=== PATIENT | male | born 1955 | race Caucasian/White ===

== ENCOUNTER → 2016-10-03 | Outpatient (CLI) | payer OTHER ==
--- NOTE | 2016-10-03 14:55 | MRI ---
HISTORY: Low back pain, paresthesias Study: MRI lumbar spine without contrast Comparison: None Technique: Multiplanar multi-sequence MRI of the lumbar spine was obtained. Sagittal T1, sagittal T 2, and stir weighted images, axial T1, and axial T2 images were obtained. Findings: The lumbar spine demonstrates normal alignment with the expected signal characteristics of the bone marrow. The conus of the cord terminates normally. T12 -- L1: No evidence for compressive disc disease. The neural foramina are patent. The joints are normal. L1 -- L2: No evidence for compressive disc disease. The neural foramina are patent. The joints are n ormal. L2 -- L3: No evidence for compressive disc disease. The neural foramina are patent. Mild facet arthr opathy is present bilaterally. L3 -- L4: There is a small focal leftward disc protrusion which contributes to mild lateral recess a nd foraminal narrowing. The right neural foramen is patent. The joints are normal. L4 -- L5: There is concentric disc bulging which is associated with a small annular rent on the left . It contributes along with pedicular shortening and bilateral facet arthropathy to lateral recess a nd foraminal narrowing bilaterally. L5 -- S1: There is a small central disc protrusion which causes minimal thecal sac effacement but no nerve root displacement. There is some concentric bulging that contributes along with bilateral fac et arthropathy to lateral recess narrowing of a mild degree bilaterally. IMPRESSION: As above Reported By:
== END ==
LOC: RAD 12:56
PROVIDERS: ATTEND Nurse Practitioner Family
DX: M47.16 Other spondylosis with myelopathy, lumbar region (principal)
CPT/HCPCS: 72148

== ENCOUNTER → 2016-12-30 | Outpatient (CLI) | payer OTHER ==
[2016-12-30 10:54] LABS: BASOPHILS # (AUTO) 0.1 X10^3/uL (0.0-0.1); EOSINOPHILS # (AUTO) 0.1 x10^3/uL (0.0-0.2); EOSINOPHILS % (AUTO) 0.9 % (0.9-2.9); HEMATOCRIT 42.4 % (42.0-54.0); HEMOGLOBIN 14.9 g/dL (13.5-18.0); LYMPHOCYTES # (AUTO) 1.8 X10^3/uL (1.3-2.9); LYMPHOCYTES % (AUTO) 27.6 % (21.0-51.0); MEAN CORPUSCULAR HEMOGLOBIN 32.5 pg (27.0-34.0); MEAN CORPUSCULAR HGB CONC 35.1 g/dL (33.0-35.0); MEAN CORPUSCULAR VOLUME 92.5 fL (80.0-100.0); MONOCYTES # (AUTO) 0.4 x10^3/uL (0.3-0.8); MONOCYTES % (AUTO) 5.5 % (0.0-13.0); NEUTROPHILS # (AUTO) 4.3 x10^3/uL (2.2-4.8); PLATELET COUNT 206 X10^3/uL (150.0-450.0); RED BLOOD COUNT 4.59 X10^6/uL (4.7-6.0); RED CELL DISTRIBUTION WIDTH 13.2 % (11.6-16.5); WHITE BLOOD COUNT 6.6 X10^3/uL (3.6-10.0)
[2016-12-30 11:04] LABS: ALANINE AMINOTRANSFERASE 32 Units/L (12-78); ALBUMIN 3.7 g/dL (3.4-5.0); ALKALINE PHOSPHATASE 90 Units/L (46-116); ASPARTATE AMINO TRANSFERASE 22 Units/L (15-37); BLOOD UREA NITROGEN 15 mg/dL (7-18); CALCIUM 8.5 mg/dL (8.5-10.1); CHLORIDE 103 mmol/L (98-107); CHOL/HDL RATIO 6.9 (0.0-5.0); CHOLESTEROL 277 mg/dL (0-200); CREATININE 0.99 mg/dL (0.70-1.30); GLUCOSE 96 mg/dL (65-99); HDL CHOLESTEROL 40 mg/dL (40-60); SODIUM 139 mmol/L (136-145); TOTAL PROTEIN 7.5 g/dL (6.4-8.2); TRIGLYCERIDES 256 mg/dL (0-150); eGFR BLACK RACES > 60 (>60); eGFR NON BLACK RACES > 60 (>60)
[2016-12-30 11:27] LABS: TOTAL PSA 0.67 ng/mL (0.13-4.0)
== END ==
LOC: LAB 10:28
PROVIDERS: ATTEND Nurse Practitioner Family
DX: Z12.5 Encounter for screening for malignant neoplasm of prostate (principal); E78.00 Pure hypercholesterolemia, unspecified; I10 Essential (primary) hypertension; R53.83 Other fatigue
CPT/HCPCS: 36415; 80053; 80061; 84153; 84270; 84402; 84403; 85025

== ENCOUNTER → 2017-07-24 | Emergency (ER) | payer OTHER ==
[2017-07-24 07:32] LABS: BASOPHILS # (AUTO) 0.1 X10^3/uL (0.0-0.1); BASOPHILS % (AUTO) 0.8 % (0.2-1.0); EOSINOPHILS # (AUTO) 0.1 x10^3/uL (0.0-0.2); EOSINOPHILS % (AUTO) 1.4 % (0.9-2.9); HEMATOCRIT 44.9 % (42.0-54.0); HEMOGLOBIN 15.9 g/dL (13.5-18.0); LYMPHOCYTES # (AUTO) 2.3 X10^3/uL (1.3-2.9); LYMPHOCYTES % (AUTO) 26.6 % (21.0-51.0); MEAN CORPUSCULAR HEMOGLOBIN 32.3 pg (27.0-34.0); MEAN CORPUSCULAR HGB CONC 35.3 g/dL (33.0-35.0); MEAN CORPUSCULAR VOLUME 91.7 fL (80.0-100.0); MEAN PLATELET VOLUME 8.8 fL (7.4-11.0); MONOCYTES # (AUTO) 0.5 x10^3/uL (0.3-0.8); MONOCYTES % (AUTO) 6.2 % (0.0-13.0); NEUTROPHILS # (AUTO) 5.7 x10^3/uL (2.2-4.8); PLATELET COUNT 209 X10^3/uL (150.0-450.0); RED CELL DISTRIBUTION WIDTH 14.1 % (11.6-16.5); WHITE BLOOD COUNT 8.7 X10^3/uL (3.6-10.0)
[2017-07-24 07:50] LABS: ALANINE AMINOTRANSFERASE 23 Units/L (12-78); ALBUMIN 3.5 g/dL (3.4-5.0); ALKALINE PHOSPHATASE 84 Units/L (46-116); ASPARTATE AMINO TRANSFERASE 21 Units/L (15-37); BLOOD UREA NITROGEN 15 mg/dL (7-18); CHLORIDE 102 mmol/L (98-107); CHOL/HDL RATIO 6.5 (0.0-5.0); CHOLESTEROL 280 mg/dL (0-200); COR NA(FOR HYPERGLY) 137 mmol/L (136-145); CREATININE 0.95 mg/dL (0.70-1.30); HDL CHOLESTEROL 43 mg/dL (40-60); SODIUM 137 mmol/L (136-145); TOTAL PROTEIN 7.5 g/dL (6.4-8.2); TRIGLYCERIDES 245 mg/dL (0-150); eGFR BLACK RACES > 60 (>60); eGFR NON BLACK RACES > 60 (>60)
== END ==
LOC: LAB 07:14
DX: E78.2 Mixed hyperlipidemia (principal); I10 Essential (primary) hypertension
CPT/HCPCS: 36415; 80053; 80061; 85025

== ENCOUNTER 2020-06-26 08:05 | Observation (INO) ==
[2020-06-26] MEDS ORDERED: LR 1000 ML IV 1,000 ML IV ONE (08:14)
[2020-06-26] MEDS ORDERED: ANCEF 1 GRAM IV PREMIX* 1 G/50 ML BAG IV ONE (08:14)
[2020-06-26] MEDS ORDERED: BACTROBAN TOPICAL OINT ONE (09:32)
[2020-06-26] MEDS ORDERED: FENTANYL INJ 250 mcg ONE (09:32)
[2020-06-26] MEDS ORDERED: OFIRMEV IV 1000 MG VIAL 1,000 MG/100 ML VIAL IV ONE (09:42)
[2020-06-26] MEDS ORDERED: QUELICIN (OR ANECTINE) ONE (09:45)
[2020-06-26] MEDS ORDERED: NORCURON INJ 10 MG VIAL ONE (09:45)
[2020-06-26] MEDS ORDERED: NEOSTIGMINE INJ ONE (09:45)
[2020-06-26] MEDS ORDERED: DIPRIVAN VIAL ONE (09:45)
[2020-06-26] MEDS ORDERED: SUPRANE ONE ×2 (09:45→10:48)
[2020-06-26] MEDS ORDERED: VERSED ONE (09:45)
[2020-06-26] MEDS ORDERED: ROBINUL ONE (09:45)
[2020-06-26] MEDS ORDERED: POLYMYXIN B SULFATE ONE (11:17)
[2020-06-26] MEDS ORDERED: PHENERGAN INJ 25 MG IM PRN (11:40)
[2020-06-26] MEDS ORDERED: BENADRYL INJ 50 MG VIAL IVP PRN (11:40)
[2020-06-26] MEDS ORDERED: ZOFRAN INJ 4 MG VIAL IVP PRN (11:40)
[2020-06-26] MEDS ORDERED: REGLAN INJ 10 MG VIAL IVP PRN (11:40)
[2020-06-26] MEDS ORDERED: APRESOLINE INJ 20 MG VIAL ONE (11:53)
[2020-06-26] MEDS ORDERED: DILAUDID INJ ONE ×3 (12:01→12:49)
[2020-06-26] MEDS ORDERED: DILAUDID INJ IVP PRN (12:17)
[2020-06-26] MEDS: D5 1/2 NS 1000 ML 1,000 ML IV SCH ×2 (12:46→21:41)
[2020-06-26 14:45] VITALS: BMI 25.1
[2020-06-26] MEDS ORDERED: NS 50 ML IV + SPIKE MINIBAG* 50 ML IV ONE (15:07)
[2020-06-26] MEDS ORDERED: ANCEF VIAL 1 GRAM ONE (15:07)
[2020-06-26] MEDS ORDERED: NS IRRIGATION* 3,000 ML ONE (15:11)
[2020-06-26] MEDS ORDERED: NS IRRIGATION* 1,000 ML ONE (15:11)
[2020-06-26] MEDS: ANCEF VIAL 1 GRAM IVP SCH ×2 (15:16→21:40)
[2020-06-26] MEDS: PERCOCET TAB 5/325 MG PO PRN (16:08)
[2020-06-26] MEDS: DILAUDID INJ IVP PRN (21:41)
[2020-06-27] MEDS: PERCOCET TAB 5/325 MG PO PRN ×3 (00:03→14:15)
[2020-06-27] MEDS: DILAUDID INJ IVP PRN ×3 (04:18→11:24)
[2020-06-27] MEDS: ANCEF VIAL 1 GRAM IVP SCH (05:54)
[2020-06-27] MEDS: D5 1/2 NS 1000 ML 1,000 ML IV SCH ×2 (05:54→08:38)
[2020-06-27] MEDS ORDERED: D5 1/2 NS 1000 ML 1,000 ML IV ONE (08:14)
[2020-06-27] MEDS ORDERED: LOVENOX INJ 40 MG SYR SC SCH (09:00)
[2020-06-27 09:04] LABS: BASOPHILS # (AUTO) 0.1 X10^3/uL (0.0-0.1); BASOPHILS % (AUTO) 0.9 % (0.2-1.0); EOSINOPHILS % (AUTO) 0.3 % (0.9-2.9); HEMATOCRIT 36.7 % (42.0-54.0); HEMOGLOBIN 12.2 g/dL (13.5-18.0); LYMPHOCYTES # (AUTO) 1.9 X10^3/uL (1.3-2.9); MEAN CORPUSCULAR HEMOGLOBIN 28.3 pg (27.0-34.0); MEAN CORPUSCULAR HGB CONC 33.3 g/dL (33.0-35.0); MEAN CORPUSCULAR VOLUME 84.9 fL (80.0-100.0); MEAN PLATELET VOLUME 8.3 fL (7.4-11.0); MONOCYTES # (AUTO) 0.8 x10^3/uL (0.3-0.8); NEUTROPHILS # (AUTO) 8.2 x10^3/uL (2.2-4.8); NEUTROPHILS % (AUTO) 74.8 % (42.0-75.0); PLATELET COUNT 274 X10^3/uL (150.0-450.0); RED BLOOD COUNT 4.32 X10^6/uL (4.7-6.0); RED CELL DISTRIBUTION WIDTH 17.7 % (11.6-16.5); WHITE BLOOD COUNT 10.9 X10^3/uL (3.6-10.0)
[2020-06-27 09:16] LABS: ALANINE AMINOTRANSFERASE 23 Units/L (12-78); ALBUMIN 3.1 g/dL (3.4-5.0); ALKALINE PHOSPHATASE 105 Units/L (46-116); ASPARTATE AMINO TRANSFERASE 40 Units/L (15-37); BLOOD UREA NITROGEN 11 mg/dL (7-18); CALCIUM 9.1 mg/dL (8.5-10.1); CARBON DIOXIDE 27.3 mmol/L (21-32); CHLORIDE 98 mmol/L (98-107); COR CA(FOR HYPOALB) 9.8 mg/dL (8.5-10.1); COR NA(FOR HYPERGLY) 134 mmol/L (136-145); SODIUM 134 mmol/L (136-145); eGFR NON BLACK RACES > 60 (>60)
[2020-06-27 11:49] VITALS: BP 163/73
== END 2020-06-27 15:10 | disposition home or self-care (01) ==
LOC: SURG1 08:05 → OBS 08:05
PROVIDERS: ADMIT Surgery; ATTEND Surgery
DX: K82.8 Other specified diseases of gallbladder; K80.12 Calculus of gallbladder with acute and chronic cholecystitis without obstruction

== ENCOUNTER 2025-03-24 11:36 | Observation (INO) ==
--- NOTE | 2025-03-24 11:58 | EKG ---
Test Reason : Chest Pain Blood Pressure : */* mmHG Vent. Rate : 135 BPM Atrial Rate : * BPM P-R Int : * ms QRS Dur : 104 ms QT Int : 288 ms P-R-T Axes : * 16 192 degrees QTc Int : 432 ms Atrial fibrillation with rapid ventricular response with premature ventricular or aberrantly conducted complexes Minimal voltage criteria for LVH, may be normal variant ( Adam product ) Abnormal ECG No previous ECGs available Confirmed by Manuel Chambers MD ([id number]) on 03/24/2025 12:34:57 PM Referred By: Confirmed By: Manuel Chambers MD
[2025-03-24 12:28] LABS: MEAN PLATELET VOLUME 9.6 fL (7.4-11.0); RED CELL DISTRIBUTION WIDTH 17.6 % (11.6-16.5)
[2025-03-24] MEDS ORDERED: ZOFRAN INJ 4 MG VIAL ONE (12:37)
[2025-03-24] MEDS: ZOFRAN INJ 4 MG VIAL IVP ONE (12:38)
[2025-03-24 12:42] LABS: COR CA(FOR HYPOALB) 9.1 mg/dL (8.5-10.1); COR NA(FOR HYPERGLY) 137 mmol/L (136-145); CREATININE 1.21 mg/dL (0.70-1.30); eGFR NON BLACK RACES > 60 (>60)
--- NOTE | 2025-03-24 13:18 | DR.CP ---
HPI Time Seen Time Seen by Provider: 03/24/25 13:18 PCP Primary Care Physician: marcy Complaint Chief Complaint Doctor Comments: Patient with extensive cardiac history with many stents presents with complaint of left side chest pain/pressure under his breast that has been going on for almost a week. Patient follows with cardiology. Patient has had bilateral lower extremity amputations [id number] due to peripheral vascular disease. Denies diabetes. Patient states his heart rate was elevated today but he does have a history of atrial fibrillation and states that he feels like his heart rate has been a little higher lately. Patient states he has no shortness of breath but describes a feeling of difficulty taking a breath when he is palpitations worsen however it is not happening at this time. Chief Complaint:: Patient states over the weekend he started having pressure on the left side chest right under his left breast. He states it feels as if he cant take a deep breath in or out. Today he states he took his bp and hr and it was elevated. He states the pressure continue to increase. Self Treatment fo Chief Complaint: hydrocodone a hour ago for his lower back pain. COVID-19 Coronavirus risk:travel/contact w/high risk person: No Has patient experienced Coronavirus symptoms: No Source History Provided: Patient Mode of Arrival Mode of Arrival: Wheelchair Timing Onset of Chief Complaint: 03/22/25 Location Chest Pain Radiation Location: Abdomen Associated Signs and Symptoms Associated Signs and Symptoms: Shortness of Breath, Palpitations and Abdominal Pain PMH PMH Past Medical History: Yes Past Medical History: Coronary Artery Disease, CVA, Dyslipidemia, Hypertension and ND Past Medical History Comment: a-fib Past Surgical History: Yes Surgical History: Abdominal Surgery, Angioplasty/Stents and CABG/Valve Surgery Past Surgical History Comment: roland above the knee amp Family History History of Family Medical Conditions: Yes Family Medical History: Coronary Artery Disease and Hypertension Social History Does patient currently use any type of tobacco product: No Have you used tobacco products in the last 12 months: No Type of Tobacco Use: None Does any household member use tobacco: No Alcohol Use: None Do you use any recreational Drugs:: No Lives With: Alone Lives Where: Home Travel Risk Coronavirus risk:travel/contact w/high risk person: No Has patient experienced Coronavirus symptoms: No Infectious screening In the last 2 months have you had wt loss of >10#?: NO Have you had fever, night sweats or hemotysis?: No Have you traveled outside the country in the last 6 months?: No Isolation: Standard ROS Review of Systems Constitutional: No Symptoms Reported Eyes: No Symptoms Reported ENTM: No Symptoms Reported Respiratoy: No Symptoms Reported Cardiovascular: See HPI Gastrointestinal/Abdominal: No Symptoms Reported Genitourinary: No Symptoms Reported Neurological: No Symptoms Reported Musculoskeletal: No Symptoms Reported Integumentary: No Symptoms Reported Hematologic/Lymphatic: No Symptoms Reported Endocrine: No Symptoms Reported Psychiatric: No Symptoms Reported All Other Systems: Reviewed and Negative PE Vitals Vitals: Vital Signs Temperature 97.9 F Pulse Rate 94 Pulse Rate 87 Pulse Rate 97 Pulse Rate 99 Pulse Rate 98 Pulse Rate 98 Pulse Rate 107 Pulse Rate 128 Pulse Rate 119 Pulse Rate 125 Pulse Rate 126 Pulse Rate 135 Pulse Rate 128 Pulse Rate 126 Pulse Rate 140 Pulse Rate 148 Pulse Rate 150 Respiratory Rate 26 Respiratory Rate 19 Respiratory Rate 25 Respiratory Rate 31 Respiratory Rate 31 Respiratory Rate 29 Respiratory Rate 22 Respiratory Rate 33 Respiratory Rate 27 Respiratory Rate 19 Respiratory Rate 16 Respiratory Rate 23 Respiratory Rate 20 Respiratory Rate 30 Respiratory Rate 32 Respiratory Rate 28 Respiratory Rate 23 Blood Pressure 110/67 Blood Pressure 111/63 Blood Pressure 114/64 Blood Pressure 105/61 Blood Pressure 116/69 Blood Pressure 116/69 Blood Pressure 137/87 Blood Pressure 119/83 Blood Pressure 111/79 Blood Pressure 135/84 O2 Sat by Pulse Oximetry 94 O2 Sat by Pulse Oximetry 96 O2 Sat by Pulse Oximetry 95 O2 Sat by Pulse Oximetry 96 O2 Sat by Pulse Oximetry 97 O2 Sat by Pulse Oximetry 98 O2 Sat by Pulse Oximetry 97 O2 Sat by Pulse Oximetry 97 O2 Sat by Pulse Oximetry 97 O2 Sat by Pulse Oximetry 97 O2 Sat by Pulse Oximetry 97 O2 Sat by Pulse Oximetry 98 O2 Sat by Pulse Oximetry 100 O2 Sat by Pulse Oximetry 99 O2 Sat by Pulse Oximetry 98 O2 Sat by Pulse Oximetry 99 O2 Sat by Pulse Oximetry 98 General Limitations: No Limitations General Appearance: Alert and In No Apparent Distress Head Head Exam: Normal Inspection Eyes Eye exam: Normal Appearance ENT ENT Exam: Normal Exam Chest Chest Inspection: Normal Inspection Respiratory Respiratory Exam: Normal Lung Sounds Bilat Cardiovascular Cardiovascular Exam: Tachycardia and Irregular Rhythm Edema: Normal Abdominal Exam Abdominal Exam: Normal Inspection, Normal Bowel Sounds and Soft Extremities Extremities Exam: Normal Inspection Back Back Exam: Normal Inspection Neurologic Neurological Exam: Alert and Oriented X3 Psychiatric Psychiatric Exam: Normal Affect and Normal Mood Skin Skin Exam: Warm, Dry, Intact and Normal Color COURSE Treatment Treatment: Discussed results of workup with patient and family. Patient with A- fib with RVR improving with Lopressor IV. Discussed admission for chest pain rule out and to monitor heart rate acid improves. Patient's sister is making appointment for tomorrow after discharge to see sweat band sewer. Consultation Called: 15:34 Consultation Comments: Discussed case with Dr. Valdez and she is agreeable to admission. ROR Labs Reviewed Laboratory Results Reviewed?: Yes 03/24/25 11:55 03/24/25 11:55 Laboratory: WBC 7.4 X10^3/uL (3.6-10.0) 03/24/25 11:55 RBC 4.44 X10^6/uL (4.7-6.0) L 03/24/25 11:55 Hgb 12.5 g/dL (13.5-18.0) L 03/24/25 11:55 Hct 37.8 % (42.0-54.0) L 03/24/25 11:55 MCV 85.3 fL (80.0-100.0) 03/24/25 11:55 MCH 28.1 pg (27.0-34.0) 03/24/25 11:55 MCHC 32.9 g/dL (33.0-35.0) L 03/24/25 11:55 RDW 17.6 % (11.6-16.5) H 03/24/25 11:55 Plt Count 218 X10^3/uL (150.0-450.0) 03/24/25 11:55 MPV 9.6 fL (7.4-11.0) 03/24/25 11:55 Neut % (Auto) 77.3 % (42.0-75.0) H 03/24/25 11:55 Lymph % (Auto) 17.5 % (21.0-51.0) L 03/24/25 11:55 Riley % (Auto) 3.6 % (0.0-13.0) 03/24/25 11:55 Eos % (Auto) 0.7 % (0.9-2.9) L 03/24/25 11:55 Baso % (Auto) 0.9 % (0.2-1.0) 03/24/25 11:55 Neut # (Auto) 5.7 x10^3/uL (2.2-4.8) H 03/24/25 11:55 Lymph # (Auto) 1.3 X10^3/uL (1.3-2.9) 03/24/25 11:55 Riley # (Auto) 0.3 x10^3/uL (0.3-0.8) 03/24/25 11:55 Eos # (Auto) 0.1 x10^3/uL (0.0-0.2) 03/24/25 11:55 Baso # (Auto) 0.1 X10^3/uL (0.0-0.1) 03/24/25 11:55 Absolute Nucleated RBC 0.1 /100WBC 03/24/25 11:55 Sodium 135 mmol/L (136-145) L 03/24/25 11:55 Corrected Sodium 137 mmol/L (136-145) 03/24/25 11:55 Potassium 3.8 mmol/L (3.5-5.1) 03/24/25 11:55 Chloride 101 mmol/L (98-107) 03/24/25 11:55 Carbon Dioxide 22.1 mmol/L (21-32) 03/24/25 11:55 BUN 15 mg/dL (7-18) 03/24/25 11:55 Creatinine 1.21 mg/dL (0.70-1.30) 03/24/25 11:55 Est GFR (MDRD) Af Amer > 60 (>60) 03/24/25 11:55 Est GFR (MDRD) Non-Af > 60 (>60) 03/24/25 11:55 Glucose 163 mg/dL (65-99) H 03/24/25 11:55 Calcium 8.5 mg/dL (8.5-10.1) 03/24/25 11:55 Corrected Calcium 9.1 mg/dL (8.5-10.1) 03/24/25 11:55 Magnesium 1.7 mg/dL (2.0-2.9) L 03/24/25 11:55 Total Bilirubin 0.90 mg/dL (0.2-1.0) 03/24/25 11:55 AST 34 Units/L (15-37) 03/24/25 11:55 ALT 59 Units/L (12-78) 03/24/25 11:55 Alkaline Phosphatase 88 Units/L (46-116) 03/24/25 11:55 Creatine Kinase 248 Units/L (39-308) 03/24/25 11:55 Troponin I High Sens 43.4 ng/L (4.0-60.0) 03/24/25 14:00 B-Natriuretic Peptide 110 pg/mL (0-79) H 03/24/25 11:55 Total Protein 7.2 g/dL (6.4-8.2) 03/24/25 11:55 Albumin 3.3 g/dL (3.4-5.0) L 03/24/25 11:55 Globulin 3.9 g/dL (2.5-4.5) 03/24/25 11:55 Albumin/Globulin Ratio 0.8 Ratio (1.1-2.1) L 03/24/25 11:55 XRAY X-ray Results: Name: Son Soto Jr [facility]#: [id number] : 1955 Sex: M Location: ER Order Number(s): [id number] Procedure(s):CHEST, 1 VIEW X-RAY Ordering Physician: Brad Dumont Primary Care: Arnol Vidal MD Service Date: 03/24/25 Service Time: 1141 EXAMINATION: CHEST, 1 VIEW HISTORY: Chest Pain; . COMPARISON STUDY: 01/13/2021 TECHNIQUE: One view FINDINGS: Previous median sternotomy with left-sided AICD device. Cardiomegaly. Minimal perihilar infiltrates suggesting CHF. 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 No pneumothorax. Hilar and mediastinal structures unremarkable. IMPRESSION: Mild CHF. Follow-up recommended. THIS IS AN ELECTRONICALLY VERIFIED FINAL REPORT 03/24/2025 1:15 PM - Electronically signed by César Pedroza MD Report Electronically signed: 03/24/25 1318 CC: Brad Dumont EKG Rate: 134 Filer: Normal Rhythm: Afib Hypertrophy: LVH ST: Normal Opioid Opioid Risk Tool Age (Gerald box if 16-45): No History of Preadolescent Sexual Abuse: No Total: 0 Total Score Risk Category: Low Risk Copyright: [facility] predicting aberrant behaviors Discharge Plan Diagnosis Discharge Problem: Chest pain, Atrial fibrillation with RVR Discharge Plan Patient Disposition: 09 ADMITTED INPATIENT Condition: Stable Prescriptions: No Action nifedipine 60 mg tablet extended release 60 mg PO QDAY 90 Days Qty: 90 1RF Rx Instructions: FreeTextSi (one) Tablet daily; Refills: 1; Provider: Marcy Ambrose gabapentin 600 mg tablet 600 mg PO TID Qty: 90 2RF isosorbide mononitrate 60 mg tablet extended release 24 hr 60 mg PO QDAY 30 Days Qty: 30 3RF Rx Instructions: FreeTextSi Tablet ER 24HR daily; Note: for HTN; Refills: 3; Provider: Marcy Ambrose niacin 750 mg tablet extended release 24 hr 1,500 mg PO QPM Qty: 30 2RF pantoprazole 20 mg tablet,delayed release (DR/EC) 20 mg PO QDAY 30 Days Qty: 30 3RF clopidogrel [Plavix] 75 mg tablet 75 mg PO QDAY 90 Days Qty: 90 1RF Rx Instructions: FreeTextSi (one) Tablet daily; Refills: 4; Provider: Marcy Ambrose hydrocodone-acetaminophen 10-325 mg tablet 1 tab PO TID MDD 3 PRN (Reason: pain) 30 Days Qty: 90 0RF losartan 100 mg tablet 100 mg PO QDAY Qty: 90 1RF metoprolol succinate 25 mg tablet extended release 24 hr 25 mg PO QDAY Qty: 90 1RF pramipexole 1 mg tablet 1 mg PO HS 90 Days Qty: 90 1RF Rx Instructions: FreeTextSi Tablet at bedtime; Refills: 2; Provider: Marcy Ambrose ranolazine 500 mg tablet extended release 12 hr 500 mg PO BID Qty: 180 1RF rosuvastatin 40 mg tablet 40 mg PO QPM Qty: 90 1RF hydralazine 50 mg tablet 50 mg PO TID 30 Days Qty: 90 3RF aspirin 81 mg tablet,delayed release (DR/EC) 81 mg PO QDAY Qty: 90 1RF Health Concerns: Post Hospitalization: new medications and changes needed to prevent readmission or further decline. Pt educated and given instructions on all concerns. Plan of Treatment: Continue with present treatment and follow up plan. Pt is to keep follow up appointment as instructed and take medications as ordered. Orders to Discharge Patient Discharge Orders: Transfer (Routine); Ordered 03/24/25 Ordered By: Brad Dumont Follow ups/Referrals Follow ups/Referrals: Arnol Vidal MD [Primary Care Provider, MEDICAL] - 3 days Instructions Stand Alone Forms: Find Help Web Site, Post Hospital Follow Up Care Print Language: BRUNEIAN
[2025-03-24] MEDS ORDERED: LOPRESSOR INJ 5 MG AMP ONE (13:21)
[2025-03-24] MEDS: LOPRESSOR INJ 5 MG AMP IVP ONE (13:29)
--- NOTE | 2025-03-24 14:27 | EKG ---
Test Reason : repeat Blood Pressure : */* mmHG Vent. Rate : 113 BPM Atrial Rate : * BPM P-R Int : * ms QRS Dur : 108 ms QT Int : 384 ms P-R-T Axes : * 28 174 degrees QTc Int : 526 ms Atrial fibrillation with rapid ventricular response T wave abnormality, consider lateral ischemia Prolonged QT Abnormal ECG When compared with ECG of 24-MAR-2025 11:57, No significant change was found Confirmed by Manuel Chambers MD ([id number]) on 03/24/2025 2:35:45 PM Referred By: Confirmed By: Manuel Chambers MD
[2025-03-24] MEDS ORDERED: TYLENOL 325 MG TAB PO PRN (17:12)
[2025-03-24] MEDS ORDERED: CONSULT PHARMACY - POTASSIUM & MAGNESIUM XX SCH (17:12)
[2025-03-24] MEDS ORDERED: NORCO 5/325 MG TAB PO PRN (17:12)
[2025-03-24] MEDS ORDERED: ULTRAM PO PRN (17:12)
[2025-03-24] MEDS: TOPROL XL PO SCH (17:52)
[2025-03-24] MEDS: NS 1,000 ML IV 1,000 ML IV SCH (17:52)
[2025-03-24] MEDS: MAG-OX TAB PO SCH (17:53)
[2025-03-24] MEDS: K-DUR TAB 20 MEQ PO ONE (17:54)
[2025-03-24 17:58] VITALS: BMI 48.8
--- NOTE | 2025-03-24 19:43 | EKG ---
Test Reason : chest pain Blood Pressure : */* mmHG Vent. Rate : 110 BPM Atrial Rate : * BPM P-R Int : * ms QRS Dur : 96 ms QT Int : 376 ms P-R-T Axes : * 23 118 degrees QTc Int : 508 ms Atrial fibrillation with rapid ventricular response with premature ventricular or aberrantly conducted complexes T wave abnormality, consider lateral ischemia Abnormal ECG When compared with ECG of 24-MAR-2025 14:26, T wave inversion less evident in Lateral leads Confirmed by Manuel Chambers MD ([id number]) on 03/24/2025 8:16:09 PM Referred By: Confirmed By: Manuel Chambers MD
[2025-03-24] MEDS: MIRAPEX TAB 1 MG PO SCH (21:15)
[2025-03-24] MEDS: CRESTOR TAB 10 MG PO SCH (21:15)
[2025-03-24] MEDS: RANEXA PO SCH (21:15)
[2025-03-24] MEDS: NEURONTIN TAB 600 MG PO SCH (21:15)
--- NOTE | 2025-03-25 01:05 | DR.H&P ---
H&P History & Physical for Day of: H&P Date: 03/24/25 Chief Complaint Chief Complaint: CHEST PAIN History of Present Illness History of Present Illness: 69 yo male with h/o HTN, extensive CVD including CAD s/p coronary stents and 3 vessel bypass and implanted defibrillator as well as bilateral LE AKMiko presents to ER complaining of heaviness in his chest. Patient states that he began feeling heaviness in his chest on Monday; states that it lasted a few minutes and passed over. States that earlier today however he was sitting watching TV and noticed the heaviness in his chest again; states that this time it would go and come but did not ever totally go away. States that he became concerned because he could also feel his heart pounding and felt short of breath and hot and sweaty. Seen in the ER and noted to have atrial fib with rapid ventricular rate which persisted despite parenteral meds. Patient also noted to have mild CHF; given his extensive CV history and current symptoms he is being admitted for further evaluation and medical stabilization. Past Medical History Past Medical History: Coronary Artery Disease, CVA, Dyslipidemia, Hypertension, RI and Ventricular Tachycardia (Patient has ICD - followed by Dr. Sprague in [place]) Past Surgical History Surgical History: Abdominal Surgery, Angioplasty/Stents (Has/Had multiple Cardiac and LE stents (prior to AKA's)), CABG/Valve Surgery (s/p 3 vessel CABG ) and Ortho Surgery (Right rotator cuff repair) Family History Family Medical History: RI, Coronary Artery Disease and Hypertension Social History Does patient currently use any type of tobacco product: No Have you used tobacco products in the last 12 months: No Type of Tobacco Use: Cigarettes How many years tobacco product used: 30 (1.5 packs X 20 years- quit 8-9 years ago) Does any household member use tobacco: No Alcohol Use: None Prescription drug monitoring program results: PDMP reviewed and no concerns identified Allergies Allergies Allergy/AdvReac Type Severity Reaction Status Date / Time morphine Allergy Severe ANAPHALEXIS Verified 03/24/25 11:50 REACTION SINTIA Inhibitors Allergy Unknown Cough; Verified 03/24/25 11:50 Dizziness cyanocobalamin (vitamin B12) Allergy Unknown Verified 03/24/25 11:50 Labs 03/24/25 11:55 03/24/25 11:55 Labs: Laboratory WBC 7.4 X10^3/uL (3.6-10.0) 03/24/25 11:55 RBC 4.44 X10^6/uL (4.7-6.0) L 03/24/25 11:55 Hgb 12.5 g/dL (13.5-18.0) L 03/24/25 11:55 Hct 37.8 % (42.0-54.0) L 03/24/25 11:55 MCV 85.3 fL (80.0-100.0) 03/24/25 11:55 MCH 28.1 pg (27.0-34.0) 03/24/25 11:55 MCHC 32.9 g/dL (33.0-35.0) L 03/24/25 11:55 RDW 17.6 % (11.6-16.5) H 03/24/25 11:55 Plt Count 218 X10^3/uL (150.0-450.0) 03/24/25 11:55 MPV 9.6 fL (7.4-11.0) 03/24/25 11:55 Neut % (Auto) 77.3 % (42.0-75.0) H 03/24/25 11:55 Lymph % (Auto) 17.5 % (21.0-51.0) L 03/24/25 11:55 [place] % (Auto) 3.6 % (0.0-13.0) 03/24/25 11:55 Eos % (Auto) 0.7 % (0.9-2.9) L 03/24/25 11:55 Baso % (Auto) 0.9 % (0.2-1.0) 03/24/25 11:55 Neut # (Auto) 5.7 x10^3/uL (2.2-4.8) H 03/24/25 11:55 Lymph # (Auto) 1.3 X10^3/uL (1.3-2.9) 03/24/25 11:55 [place] # (Auto) 0.3 x10^3/uL (0.3-0.8) 03/24/25 11:55 Eos # (Auto) 0.1 x10^3/uL (0.0-0.2) 03/24/25 11:55 Baso # (Auto) 0.1 X10^3/uL (0.0-0.1) 03/24/25 11:55 Absolute Nucleated RBC 0.1 /100WBC 03/24/25 11:55 Sodium 135 mmol/L (136-145) L 03/24/25 11:55 Corrected Sodium 137 mmol/L (136-145) 03/24/25 11:55 Potassium 3.8 mmol/L (3.5-5.1) 03/24/25 11:55 Chloride 101 mmol/L (98-107) 03/24/25 11:55 Carbon Dioxide 22.1 mmol/L (21-32) 03/24/25 11:55 BUN 15 mg/dL (7-18) 03/24/25 11:55 Creatinine 1.21 mg/dL (0.70-1.30) 03/24/25 11:55 Est GFR (MDRD) Af Amer > 60 (>60) 03/24/25 11:55 Est GFR (MDRD) Non-Af > 60 (>60) 03/24/25 11:55 Glucose 163 mg/dL (65-99) H 03/24/25 11:55 Calcium 8.5 mg/dL (8.5-10.1) 03/24/25 11:55 Corrected Calcium 9.1 mg/dL (8.5-10.1) 03/24/25 11:55 Magnesium 1.7 mg/dL (2.0-2.9) L 03/24/25 11:55 Total Bilirubin 0.90 mg/dL (0.2-1.0) 03/24/25 11:55 AST 34 Units/L (15-37) 03/24/25 11:55 ALT 59 Units/L (12-78) 03/24/25 11:55 Alkaline Phosphatase 88 Units/L (46-116) 03/24/25 11:55 Creatine Kinase 248 Units/L (39-308) 03/24/25 11:55 Troponin I High Sens 43.4 ng/L (4.0-60.0) 03/24/25 14:00 B-Natriuretic Peptide 110 pg/mL (0-79) H 03/24/25 11:55 Total Protein 7.2 g/dL (6.4-8.2) 03/24/25 11:55 Albumin 3.3 g/dL (3.4-5.0) L 03/24/25 11:55 Globulin 3.9 g/dL (2.5-4.5) 03/24/25 11:55 Albumin/Globulin Ratio 0.8 Ratio (1.1-2.1) L 03/24/25 11:55 Review of Systems Constitutional: No Symptoms Reported Eyes: No Symptoms Reported ENT: No Symptoms Reported Respiratory: Shortness of Breath and SOB with Excertion; denies Pleuritic Pain Cardiovascular: Chest Pain and Palpitations Gastrointestinal: Abdominal Pain (Abdominal bloating; early satiety); denies Nausea or Vomiting Neurological: No Symptoms Reported Physical Exam Vital Signs: Vital Signs Temperature 97.9 F Pulse Rate 96 Pulse Rate 113 Pulse Rate 94 Pulse Rate 87 Pulse Rate 97 Pulse Rate 99 Pulse Rate 98 Pulse Rate 98 Pulse Rate 107 Pulse Rate 128 Pulse Rate 119 Pulse Rate 125 Pulse Rate 126 Pulse Rate 135 Pulse Rate 128 Pulse Rate 126 Pulse Rate 140 Pulse Rate 148 Pulse Rate 150 Respiratory Rate 23 Respiratory Rate 27 Respiratory Rate 26 Respiratory Rate 19 Respiratory Rate 25 Respiratory Rate 31 Respiratory Rate 31 Respiratory Rate 29 Respiratory Rate 22 Respiratory Rate 33 Respiratory Rate 27 Respiratory Rate 19 Respiratory Rate 16 Respiratory Rate 23 Respiratory Rate 20 Respiratory Rate 30 Respiratory Rate 32 Respiratory Rate 28 Respiratory Rate 23 Blood Pressure 110/67 Blood Pressure 111/63 Blood Pressure 114/64 Blood Pressure 105/61 Blood Pressure 116/69 Blood Pressure 116/69 Blood Pressure 137/87 Blood Pressure 119/83 Blood Pressure 111/79 Blood Pressure 135/84 O2 Sat by Pulse Oximetry 97 O2 Sat by Pulse Oximetry 96 O2 Sat by Pulse Oximetry 94 O2 Sat by Pulse Oximetry 96 O2 Sat by Pulse Oximetry 95 O2 Sat by Pulse Oximetry 96 O2 Sat by Pulse Oximetry 97 O2 Sat by Pulse Oximetry 98 O2 Sat by Pulse Oximetry 97 O2 Sat by Pulse Oximetry 97 O2 Sat by Pulse Oximetry 97 O2 Sat by Pulse Oximetry 97 O2 Sat by Pulse Oximetry 97 O2 Sat by Pulse Oximetry 98 O2 Sat by Pulse Oximetry 100 O2 Sat by Pulse Oximetry 99 O2 Sat by Pulse Oximetry 98 O2 Sat by Pulse Oximetry 99 O2 Sat by Pulse Oximetry 98 Oriented: Normal, Time, Person and Place Eyes: Normal Ear: Normal (Hearing grossly normal) Respiratory: RLL Diminished, RLL Rales and LLL Rales Cardiovascular: Tachycardia and Irregular Auscultation: Bowel Sounds: Normal Palpation: Other Assessment/Plan (1) Atrial fibrillation with RVR: Status: Acute Plan: Patient with documented CAD and cardiac dysrhythmias now with AF with RVR. Admitted to telemetry; control heart rate (2) Chest pain: Qualifiers: Chest pain type: other chest pain Qualified Code(s): R07.89 - Other chest pain Status: Acute Plan: Patient with chest pain, documented h/o CAD and a fib with RVR. Initial cardiac troponins negative. Admit to telemetry, follow serial cardiac troponins (3) CHF (congestive heart failure): Qualifiers: Heart failure type: high output Qualified Code(s): I50.83 - High output heart failure Status: Acute Plan: Patient with CHF likely exacerbated by a fib with RVR. Of note, patient with documented CAD and ICD- baseline EF unclear. Will give parenteral Lasix; recheck CXR and monitor electrolytes (4) Hyperglycemia: Status: Acute Plan: Patient with elevated serum glucose; denies h/o DM. Check HgbA1c- await results Review H&P Reviewed: Yes Patient was examined?: Yes
--- NOTE | 2025-03-25 02:48 | EKG ---
Test Reason : chest pain Blood Pressure : */* mmHG Vent. Rate : 90 BPM Atrial Rate : * BPM P-R Int : * ms QRS Dur : 98 ms QT Int : 404 ms P-R-T Axes : * 61 197 degrees QTc Int : 494 ms Atrial fibrillation with premature ventricular or aberrantly conducted complexes Minimal voltage criteria for LVH, may be normal variant ( Adam product ) Nonspecific ST and T wave abnormality Prolonged QT Abnormal ECG When compared with ECG of 24-MAR-2025 19:26, No significant change was found Confirmed by Manuel Chambers MD ([id number]) on 03/25/2025 6:26:09 AM Referred By: Confirmed By: Manuel Chambers MD
[2025-03-25] MEDS: LASIX IVP SCH ×2 (05:00→18:33)
[2025-03-25 05:02] LABS: MEAN PLATELET VOLUME 9.3 fL (7.4-11.0); RED CELL DISTRIBUTION WIDTH 17.4 % (11.6-16.5)
[2025-03-25 05:17] LABS: CHOL/HDL RATIO 4.4 (0.0-5.0); COR CA(FOR HYPOALB) 8.9 mg/dL (8.5-10.1); COR NA(FOR HYPERGLY) 138 mmol/L (136-145); CREATININE 1.24 mg/dL (0.70-1.30); eGFR NON BLACK RACES > 60 (>60)
--- NOTE | 2025-03-25 07:58 | EKG ---
Test Reason : chest pain Blood Pressure : */* mmHG Vent. Rate : 104 BPM Atrial Rate : * BPM P-R Int : * ms QRS Dur : 108 ms QT Int : 330 ms P-R-T Axes : * 46 201 degrees QTc Int : 433 ms Atrial fibrillation with rapid ventricular response with premature ventricular or aberrantly conducted complexes Minimal voltage criteria for LVH, may be normal variant ( Adam product ) T wave abnormality, consider inferolateral ischemia Abnormal ECG When compared with ECG of 25-MAR-2025 02:45, Nonspecific T wave abnormality no longer evident in Anterior leads QT has shortened Confirmed by Manuel Chambers MD ([id number]) on 03/26/2025 6:42:02 AM Referred By: Confirmed By: Manuel Chambers MD
--- NOTE | 2025-03-25 08:16 | DR.CONSULT ---
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?-once on doac- presented with cp/sob/fast hr/mild chf- found to be in rapid afib- admitted- given lasix that helped sob-hr still 100s no doac Past Medical History Past Medical History: Coronary Artery Disease Past Surgical History Surgical History: Abdominal Surgery, Angioplasty/Stents and CABG/Valve Surgery Family History Family Medical History: Coronary Artery Disease and Hypertension Social History Does patient currently use any type of tobacco product: No Have you used tobacco products in the last 12 months: No Type of Tobacco Use: Cigarettes How many years tobacco product used: 30 (1.5 packs X 20 years- quit 8-9 years ago) Does any household member use tobacco: No Alcohol Use: Occasionally Drug Use: None Medications Home Medications: morphine Allergy (Severe, Verified 03/24/25 11:50) ANAPHALEXIS REACTION SINTIA Inhibitors Allergy (Unknown, Verified 03/24/25 11:50) Cough; Dizziness cyanocobalamin (vitamin B12) Allergy (Unknown, Verified 03/24/25 11:50) Physical Exam Vital Signs: Vital Signs Temperature 98.1 F Pulse Rate 104 Pulse Rate 83 Pulse Rate 76 Pulse Rate 97 Pulse Rate 88 Pulse Rate 101 Respiratory Rate 22 Respiratory Rate 19 Respiratory Rate 22 Respiratory Rate 24 Respiratory Rate 23 Respiratory Rate 30 Blood Pressure 125/61 Blood Pressure 106/65 Blood Pressure 122/58 Blood Pressure 102/64 Blood Pressure 101/60 Blood Pressure 108/62 O2 Sat by Pulse Oximetry 93 O2 Sat by Pulse Oximetry 94 O2 Sat by Pulse Oximetry 94 O2 Sat by Pulse Oximetry 95 O2 Sat by Pulse Oximetry 95 O2 Sat by Pulse Oximetry 97 alert ox3 nad clera lungs irreg irreg fast defib ok s/p b aka labs:hct 34 k 4.3 cr 1.24 tropx 3 ngative bnp 110 cxr: aicd/cm/mild chf Plan (1) Atrial fibrillation with RVR: Status: Acute Plan: add doac/get echo- stop asa to minimize bleeding risk- push bb for rate control-check tsh (2) Chest pain: Status: Acute Qualifiers: Chest pain type: other chest pain Qualified Code(s): R07.89 - Other chest pain (3) CHF (congestive heart failure): Status: Acute Qualifiers: Heart failure type: high output Qualified Code(s): I50.83 - High output heart failure
[2025-03-25 08:49] LABS: TSH (3RD GENERATION) 1.475 uIU/mL (0.358-3.74)
[2025-03-25] MEDS ORDERED: ASPIRIN EC 81 MG PO SCH (09:00)
--- NOTE | 2025-03-25 09:23 | DR.PROGNOT ---
HOSPITAL PROGRESS NOTE Progress Note for Day of: Progress Note Date: 03/25/25 Chief Complaint Chief Complaint: HEART RACING/CHEST PAIN History of Present Illness History of Present Illness: 69 yo male with h/o HTN, extensive vascular disease including CAD and PAD, s/p CABG, s/p multiple lower extremity and coronary stents and ICD placement admitted for new onset atrial fib with RVR and CHF. Patient states that he feels much better; states that he has not felt his heart pounding and has not had chest pain since admission. States that his breathing is better as well. Voices no new complaints Past Medical Family Social History Past Med/Fam/Surg Hx: No changes since H&P Allergies: Allergies morphine Allergy (Severe, Verified 03/24/25 11:50) ANAPHALEXIS REACTION Reason: Drug allergy SINTIA Inhibitors Allergy (Unknown, Verified 03/24/25 11:50) Cough; Dizziness cyanocobalamin (vitamin B12) Allergy (Unknown, Verified 03/24/25 11:50) replaces previous uncoded entry Review Of Systems ROS: No change since H&P Vital Signs Vital Signs: Vital Signs Temperature 97.9 F Temperature 98.1 F Pulse Rate 106 Pulse Rate 113 Pulse Rate 104 Pulse Rate 83 Pulse Rate 76 Pulse Rate 97 Pulse Rate 88 Respiratory Rate 22 Respiratory Rate 22 Respiratory Rate 22 Respiratory Rate 19 Respiratory Rate 22 Respiratory Rate 24 Respiratory Rate 23 Blood Pressure 130/74 Blood Pressure 106/78 Blood Pressure 125/61 Blood Pressure 106/65 Blood Pressure 122/58 Blood Pressure 102/64 Blood Pressure 101/60 O2 Sat by Pulse Oximetry 95 O2 Sat by Pulse Oximetry 94 O2 Sat by Pulse Oximetry 93 O2 Sat by Pulse Oximetry 94 O2 Sat by Pulse Oximetry 94 O2 Sat by Pulse Oximetry 95 O2 Sat by Pulse Oximetry 95 Physical Exam Oriented: Normal, Time, Person and Place Eyes: Normal Ear: Normal (Hearing grossly normal) Respiratory: Diminished (Diminished breath sounds at right base) and Rales (Bibasilar rales) Cardiovascular: Tachycardia and Irregular GI:Auscultation: Normal GI:Palpation: Other GI: Tenderness: Normal Mood Description: Calm Affect: Normal Speech Pattern: Clear Laboratory and Diagnostics 03/25/25 04:40 03/25/25 04:40 Labs: Laboratory WBC 6.3 X10^3/uL (3.6-10.0) 03/25/25 04:40 RBC 4.04 X10^6/uL (4.7-6.0) L 03/25/25 04:40 Hgb 11.4 g/dL (13.5-18.0) L 03/25/25 04:40 Hct 34.2 % (42.0-54.0) L 03/25/25 04:40 MCV 84.5 fL (80.0-100.0) 03/25/25 04:40 MCH 28.3 pg (27.0-34.0) 03/25/25 04:40 MCHC 33.5 g/dL (33.0-35.0) 03/25/25 04:40 RDW 17.4 % (11.6-16.5) H 03/25/25 04:40 Plt Count 199 X10^3/uL (150.0-450.0) 03/25/25 04:40 MPV 9.3 fL (7.4-11.0) 03/25/25 04:40 Neut % (Auto) 66.5 % (42.0-75.0) 03/25/25 04:40 Lymph % (Auto) 21.6 % (21.0-51.0) 03/25/25 04:40 [place] % (Auto) 9.7 % (0.0-13.0) 03/25/25 04:40 Eos % (Auto) 1.4 % (0.9-2.9) 03/25/25 04:40 Baso % (Auto) 0.8 % (0.2-1.0) 03/25/25 04:40 Neut # (Auto) 4.2 x10^3/uL (2.2-4.8) 03/25/25 04:40 Lymph # (Auto) 1.4 X10^3/uL (1.3-2.9) 03/25/25 04:40 [place] # (Auto) 0.6 x10^3/uL (0.3-0.8) 03/25/25 04:40 Eos # (Auto) 0.1 x10^3/uL (0.0-0.2) 03/25/25 04:40 Baso # (Auto) 0.0 X10^3/uL (0.0-0.1) 03/25/25 04:40 Absolute Nucleated RBC 0.2 /100WBC 03/25/25 04:40 Sodium 138 mmol/L (136-145) 03/25/25 04:40 Corrected Sodium 138 mmol/L (136-145) 03/25/25 04:40 Potassium 4.3 mmol/L (3.5-5.1) 03/25/25 04:40 Chloride 105 mmol/L (98-107) 03/25/25 04:40 Carbon Dioxide 30.3 mmol/L (21-32) 03/25/25 04:40 BUN 12 mg/dL (7-18) 03/25/25 04:40 Creatinine 1.24 mg/dL (0.70-1.30) 03/25/25 04:40 Est GFR (MDRD) Af Amer > 60 (>60) 03/25/25 04:40 Est GFR (MDRD) Non-Af > 60 (>60) 03/25/25 04:40 Glucose 113 mg/dL (65-99) H 03/25/25 04:40 Hemoglobin A1c 6.2 % 03/25/25 04:40 Calcium 8.0 mg/dL (8.5-10.1) L 03/25/25 04:40 Corrected Calcium 8.9 mg/dL (8.5-10.1) 03/25/25 04:40 Magnesium 1.7 mg/dL (2.0-2.9) L 03/24/25 11:55 Total Bilirubin 0.50 mg/dL (0.2-1.0) 03/25/25 04:40 AST 30 Units/L (15-37) 03/25/25 04:40 ALT 46 Units/L (12-78) 03/25/25 04:40 Alkaline Phosphatase 75 Units/L (46-116) 03/25/25 04:40 Creatine Kinase 203 Units/L (39-308) 03/25/25 04:40 Troponin I High Sens 44.8 ng/L (4.0-60.0) 03/25/25 04:40 B-Natriuretic Peptide 110 pg/mL (0-79) H 03/24/25 11:55 Total Protein 6.4 g/dL (6.4-8.2) 03/25/25 04:40 Albumin 2.9 g/dL (3.4-5.0) L 03/25/25 04:40 Globulin 3.5 g/dL (2.5-4.5) 03/25/25 04:40 Albumin/Globulin Ratio 0.8 Ratio (1.1-2.1) L 03/25/25 04:40 Triglycerides 86 mg/dL (0-150) 03/25/25 04:40 Cholesterol 133 mg/dL (0-200) 03/25/25 04:40 LDL Cholesterol, Calc 86 mg/dL (0-100) 03/25/25 04:40 HDL Cholesterol 30 mg/dL (40-60) L 03/25/25 04:40 Cholesterol/HDL Ratio 4.4 (0.0-5.0) 03/25/25 04:40 Free T4 1.15 ng/dL (0.76-1.46) 03/25/25 04:40 TSH 3rd Generation 1.475 uIU/mL (0.358-3.74) 03/25/25 04:40 Radiology Reviewed: No Assessment and Plan 1: Atrial Fib with RVR. Heart rate improved but higher than desired rate. Dr. Chambers's evaluation and recommendations noted and appreciated; agree with recommendations of target HR in the 80s and echocardiogram. Continue telemetry, Metoprolol q 6hrs and Eliquis 5mg BID. Additional recommendations per Dr. Chambers 2: CHF- patient with decompensated CHF likely due to tachycardia and underlying CVD. Patient subjectively and clinically improved; continue Lasix q 12 hrs- correct hypokalemia and follow K+ and Mg++ levels. Echocardiogram pending; reviewed notes from patient's [employer]- Dr. Sprague. EF 42% 05/2023 3: Impaired glucose tolerance. Patient noted to have random blood sugar of 163 on admission; HgbA1c 6.2%- will start modified diet and monitor blood sugars. No meds at this point Problem Patient Problems: Patient Problems Atrial fibrillation with RVR (Acute) I48.91 Chest pain (Acute) R07.9
[2025-03-25] MEDS: ISOSORBIDE MONONITRATE ER 24-HR PO SCH (10:00)
[2025-03-25] MEDS: ELIQUIS PO SCH (10:00)
[2025-03-25] MEDS: PLAVIX PO SCH (10:00)
[2025-03-25] MEDS: PROTONIX TAB 40 MG PO SCH (10:00)
[2025-03-25] MEDS: LOPRESSOR TAB 25 MG PO SCH (10:00)
--- NOTE | 2025-03-25 14:52 | RAD ---
EXAM: CHEST, 1 VIEW HISTORY: COARSE BILATERAL LUNG KELSEY; COMPARISON: 03/24/2025 TECHNIQUE: AP FINDINGS: Median sternotomy wires and postsurgical changes from prior CABG. Left-sided ICD lead in place. Stable prominent cardiac silhouette. Pulmonary vascular engorgement. Mild hazy perihilar opacities are similar to comparison. No large pleural effusion or visible pneumothorax. IMPRESSION: Pulmonary vascular engorgement with stable mild pulmonary edema. THIS IS AN ELECTRONICALLY VERIFIED FINAL REPORT 03/25/2025 2:49 PM - Electronically signed by Willie Adamson MD
[2025-03-26 05:19] LABS: MEAN PLATELET VOLUME 9.2 fL (7.4-11.0); RED CELL DISTRIBUTION WIDTH 17.0 % (11.6-16.5)
[2025-03-26 05:42] LABS: CREATININE 1.27 mg/dL (0.70-1.30); eGFR NON BLACK RACES > 60 (>60)
--- NOTE | 2025-03-26 06:05 | RAD ---
EXAM: CHEST, 1 VIEW HISTORY: COARSE HILDA LUNG KELSEY ; CAD, CVA, HTN, ME, AFIB SX: ABDOMINAL SURG, ANGIO/STENTS, CABG/VALVE, HILDA AKA COMPARISON: 03/17/2025 FINDINGS: The trachea is midline. The cardiac silhouette is moderately enlarged. Permanent pacing device. Changes of prior CABG surgery.. Left perihilar infiltrate.. The bony thorax is unremarkable. IMPRESSION: Moderate cardiomegaly Left perihilar infiltrate. THIS IS AN ELECTRONICALLY VERIFIED FINAL REPORT 03/26/2025 6:01 AM - Electronically signed by Guero Mandujano MD
[2025-03-26] MEDS: CORDARONE TAB 200 MG PO SCH (08:25)
[2025-03-26] MEDS: TOPROL XL PO SCH (08:25)
[2025-03-26 12:17] VITALS: BP 125/73; PULSE 96; RESP 34; TEMP 98; O2SAT 96
--- NOTE | 2025-03-26 12:36 | NOTE.SOAP ---
Soap Note Note for Day of Date of Exam: 03/26/25 Subjective Data Subjective Data: getting d/c- no cp/sob- still in afib with hr 90s Objective Data Objective Data: echo: lvef 35% ( old) mild/mor mr- big LA- high risk of recurrence afib so amiodorone added Assessment Assessment: cad/cardiomyopathy/mr/afib Plan Plan: rate control with increased bb/amio added/doac added- to see his cardio next week- CV in 3-4 weeks if still in afib- tolerating ok w rate control
--- NOTE | 2025-03-27 08:46 | PCM.DCPLAN ---
DISCHARGE SUMMARY Admission Date Date of Admission: 03/24/25 Discharge Date Discharge Date: 03/26/25 Admission Diagnoses (1) Atrial fibrillation with RVR: Status: Acute (2) Chest pain: Status: Acute (3) CHF (congestive heart failure): Status: Acute Discharge Medications Discharge Medications: Prescriptions: Hospital Course Vital Signs: Vital Signs Temperature 98.0 F Temperature 97.8 F Pulse Rate 87 Pulse Rate 103 Pulse Rate 94 Pulse Rate 90 Pulse Rate 98 Pulse Rate 88 Pulse Rate 102 Respiratory Rate 25 Respiratory Rate 25 Respiratory Rate 28 Respiratory Rate 28 Respiratory Rate 28 Respiratory Rate 26 Respiratory Rate 28 Blood Pressure 102/55 Blood Pressure 114/80 Blood Pressure 105/64 Blood Pressure 115/72 Blood Pressure 112/68 Blood Pressure 100/54 Blood Pressure 107/60 O2 Sat by Pulse Oximetry 94 O2 Sat by Pulse Oximetry 97 O2 Sat by Pulse Oximetry 95 O2 Sat by Pulse Oximetry 98 O2 Sat by Pulse Oximetry 95 O2 Sat by Pulse Oximetry 94 O2 Sat by Pulse Oximetry 95 Latest Lab Results: Laboratory Last Values WBC 7.7 X10^3/uL (3.6-10.0) 03/26/25 04:23 RBC 4.16 X10^6/uL (4.7-6.0) L 03/26/25 04:23 Hgb 11.9 g/dL (13.5-18.0) L 03/26/25 04:23 Hct 35.1 % (42.0-54.0) L 03/26/25 04:23 MCV 84.3 fL (80.0-100.0) 03/26/25 04:23 MCH 28.5 pg (27.0-34.0) 03/26/25 04:23 MCHC 33.8 g/dL (33.0-35.0) 03/26/25 04:23 RDW 17.0 % (11.6-16.5) H 03/26/25 04:23 Plt Count 207 X10^3/uL (150.0-450.0) 03/26/25 04:23 MPV 9.2 fL (7.4-11.0) 03/26/25 04:23 Neut % (Auto) 70.3 % (42.0-75.0) 03/26/25 04:23 Lymph % (Auto) 18.2 % (21.0-51.0) L 03/26/25 04:23 [place] % (Auto) 9.3 % (0.0-13.0) 03/26/25 04:23 Eos % (Auto) 1.8 % (0.9-2.9) 03/26/25 04:23 Baso % (Auto) 0.4 % (0.2-1.0) 03/26/25 04:23 Neut # (Auto) 5.4 x10^3/uL (2.2-4.8) H 03/26/25 04:23 Lymph # (Auto) 1.4 X10^3/uL (1.3-2.9) 03/26/25 04:23 [place] # (Auto) 0.7 x10^3/uL (0.3-0.8) 03/26/25 04:23 Eos # (Auto) 0.1 x10^3/uL (0.0-0.2) 03/26/25 04:23 Baso # (Auto) 0.0 X10^3/uL (0.0-0.1) 03/26/25 04:23 Absolute Nucleated RBC 0.1 /100WBC 03/26/25 04:23 Sodium 139 mmol/L (136-145) 03/26/25 04:23 Corrected Sodium TNP 03/26/25 04:23 Potassium 4.1 mmol/L (3.5-5.1) 03/26/25 04:23 Chloride 101 mmol/L (98-107) 03/26/25 04:23 Carbon Dioxide 31.5 mmol/L (21-32) 03/26/25 04:23 BUN 20 mg/dL (7-18) H 03/26/25 04:23 Creatinine 1.27 mg/dL (0.70-1.30) 03/26/25 04:23 Est GFR (MDRD) Af Amer > 60 (>60) 03/26/25 04:23 Est GFR (MDRD) Non-Af > 60 (>60) 03/26/25 04:23 Glucose 107 mg/dL (65-99) H 03/26/25 04:23 POC Glucose (mg/dL) 124 mg/dL (65-99) H 03/26/25 05:07 Hemoglobin A1c 6.2 % 03/25/25 04:40 Calcium 8.6 mg/dL (8.5-10.1) 03/26/25 04:23 Corrected Calcium 8.9 mg/dL (8.5-10.1) 03/25/25 04:40 Magnesium 2.0 mg/dL (2.0-2.9) 03/26/25 04:23 Total Bilirubin 0.50 mg/dL (0.2-1.0) 03/25/25 04:40 AST 30 Units/L (15-37) 03/25/25 04:40 ALT 46 Units/L (12-78) 03/25/25 04:40 Alkaline Phosphatase 75 Units/L (46-116) 03/25/25 04:40 Creatine Kinase 203 Units/L (39-308) 03/25/25 04:40 Troponin I High Sens 44.8 ng/L (4.0-60.0) 03/25/25 04:40 B-Natriuretic Peptide 110 pg/mL (0-79) H 03/24/25 11:55 Total Protein 6.4 g/dL (6.4-8.2) 03/25/25 04:40 Albumin 2.9 g/dL (3.4-5.0) L 03/25/25 04:40 Globulin 3.5 g/dL (2.5-4.5) 03/25/25 04:40 Albumin/Globulin Ratio 0.8 Ratio (1.1-2.1) L 03/25/25 04:40 Triglycerides 86 mg/dL (0-150) 03/25/25 04:40 Cholesterol 133 mg/dL (0-200) 03/25/25 04:40 LDL Cholesterol, Calc 86 mg/dL (0-100) 03/25/25 04:40 HDL Cholesterol 30 mg/dL (40-60) L 03/25/25 04:40 Cholesterol/HDL Ratio 4.4 (0.0-5.0) 03/25/25 04:40 Free T4 1.15 ng/dL (0.76-1.46) 03/25/25 04:40 TSH 3rd Generation 1.475 uIU/mL (0.358-3.74) 03/25/25 04:40 Hospital Course: Patient presented to the ER from home due to worsening chest tightness and shortness of breath. Multiple stents and multiple blood vessels due to PVD, PAD, and CAD. Found to be in A-fib with RVR and placed on amiodarone, increased metoprolol, and Eliquis by cardiology. He has done well with overall stable vitals. When he does get excited while talking, he is animated, and heart rate will go up to 105-115 with no symptoms now. Most of the time his heart rate is in the 80-95 range. Does have cardiology in [place] he follows with frequently. He has been discharged on metoprolol 50 twice daily, Eliquis 5 twice daily, and Lasix 20 twice daily as needed. He is in improved, stable condition and will need to follow-up with PCP and cardiology. PE: Well-developed, well-nourished male in no acute distress. Multiple, well- healed incisional scars across his body to include CABG, bilateral shoulders, and bilateral amputations. Heart irregularly, regular with no murmur. Lungs are clear with strong speech. Belly is soft and nontender with bowel sounds present. Mood and affect are appropriate. Skin is appropriate color and turgor with no rashes or bruising noted.
== END 2025-03-26 12:45 | disposition home or self-care (01) ==
LOC: ER 11:36 → MED/SURG 11:36 → ICU 16:45 → U 16:54 → ICU 16:54
PROVIDERS: ADMIT Family Medicine; ATTEND Family Medicine
DX: R94.31 Abnormal electrocardiogram [ECG] [EKG]; D64.89 Other specified anemias; R00.0 Tachycardia, unspecified; E83.42 Hypomagnesemia; I48.91 Unspecified atrial fibrillation; Z95.2 Presence of prosthetic heart valve; I25.2 Old myocardial infarction; R73.09 Other abnormal glucose; Z86.73 Personal history of transient ischemic attack (TIA), and cerebral infarction without residual deficits; Z89.612 Acquired absence of left leg above knee; Z89.611 Acquired absence of right leg above knee; R06.02 Shortness of breath; R07.89 Other chest pain; I50.83 High output heart failure; I25.810 Atherosclerosis of coronary artery bypass graft(s) without angina pectoris; Z95.810 Presence of automatic (implantable) cardiac defibrillator